=== PATIENT | female | born 2000 ===

== ENCOUNTER 2019-08-12 19:18 | Outpatient (CLI) | payer MEDICAID ==
[2019-08-12] MEDS ORDERED: LACTATED RINGERS 1,000 ML IV ONE (21:12)
[2019-08-12 21:41] LABS: Bilirubin,Urine NEG (Negative); Blood,Urine SM (Negative); Color,Urine Yellow (Yellow); Mucus,Urine 1+ /HPF; Urobilinogen,Urine < 2.0 mg/dL (<2.0)
[2019-08-12 23:45] VITALS: BP 121/62
--- NOTE | 2019-08-13 02:11 | Ultrasound Report ---
COMPLETE TRANSABDOMINAL OB PELVIC ULTRASOUND INDICATION / CLINICAL INFORMATION: Vaginal bleeding. COMPARISON: None available. FINDINGS: There is a single intrauterine with an estimated sonographic gestational age of 31 weeks 5 days and an MAYRA of 10[birth year]09/2021. Clinical dates are 33 weeks 1 day. The heart rate is 179 bpm. Fet al presentation is cephalic. Amniotic fluid volume is normal with an MIKE of 12.0 cm. The placenta is located posteriorly, is grade 1 and is free of the os. The cervix measures 3.6 cm in length and the internal os is closed. Neither ovary is seen. The intracranial and spinal anatomy are normal. A 4 chambered heart view is seen. The stomach, kidn eys, urinary bladder and diaphragm are normal. There is a three-vessel umbilical cord which inserts n ormally on the abdomen. No anomalies are seen. IMPRESSION: Single viable 31 week 5 day intrauterine without complication. Signer Name: Chase Moreno MD Signed: 08/13/2019 2:07 AM Workstation Name: [id number]
== END 2019-08-13 00:22 | disposition home or self-care (01) ==
LOC: TRG 19:18
PROVIDERS: ATTEND Obstetrics & Gynecology
DX: O46.93 Antepartum hemorrhage, unspecified, third trimester (principal); O26.893 Other specified pregnancy related conditions, third trimester; R10.9 Unspecified abdominal pain; Z3A.33 33 weeks gestation of pregnancy
CPT/HCPCS: 59025; 76805; 81001; 87086